=== PATIENT | female | born 1985 | race Caucasian/White ===

== ENCOUNTER 2017-07-08 14:18 | Emergency (ER) | payer OTHER ==
[2017-07-08 14:27] VITALS: BP 117/70; PULSE 93; TEMP 99.6; BMI 29.5
--- NOTE | 2017-07-08 14:50 | PDOC ---
History of Present Illness - General Chief Complaint: Cold Symptoms Stated Complaint: COUGH Time Seen by Provider: 07/08/17 14:36 History Source: Patient - History of Present Illness Timing/Duration: reports: other Associated Symptoms: reports: chest pain/soreness, cough. denies: fever/chills , shortness of breath, wheezing Past History - Past Medical History Allergies/Adverse Reactions: Allergies Allergy/AdvReac Type Severity Reaction Status Date / Time No Known Drug Allergies Allergy Verified 07/08/17 14:27 Home Medications: Ambulatory Orders Azithromycin 250 mg PO DAILY #4 tablet 07/08/17 Benzonatate [Tessalon Pearls -] 100 mg PO TID #21 capsule 07/08/17 Anemia: No Asthma: No Cancer: No Cardiac Disorders: No CVA: No COPD: No CHF: No Dementia: No Diabetes: No GI Disorders: No Disorders: Yes (KIDNEY STONES) HTN: No Hypercholesterolemia: No Liver Disease: No Suicide Attempt (Hx): No Seizures: No Thyroid Disease: No - Surgical History Abdominal Surgery: No Appendectomy: No Cardiac Surgery: No Cholecystectomy: No Lung Surgery: No Neurologic Surgery: No Orthopedic Surgery: No - Immunization History Immunization Up to Date: Yes - Psycho/Social/Smoking Cessation Hx Anxiety: No Suicidal Ideation: No Smoking History: Never smoked Have you smoked in the past 12 months: No Information on smoking cessation initiated: No Hx Alcohol Use: No Drug/Substance Use Hx: No Substance Use Type: None Hx Substance Use Treatment: No Review of Systems - Review of Systems Constitutional: No: Chills, Fever Respiratory: Yes: Cough. No: Shortness of Breath, Wheezing, Hemoptysis *Physical Exam - Vital Signs Last Vital Signs Temp Pulse Resp BP Pulse Ox 99.6 F 93 H 18 117/70 98 07/08/17 14:24 07/08/17 14:24 07/08/17 14:24 07/08/17 14:24 07/08/17 14:24 - Physical Exam General Appearance: Yes: Appropriately Dressed. No: Apparent Distress HEENT: positive: Normal ENT Inspection, Muffled/Hoarse voice (voice hoarse). negative: Scleral Icterus (R), Scleral Icterus (L) Neck: positive: Supple. negative: Lymphadenopathy (R), Lymphadenopathy (L) Respiratory/Chest: positive: Lungs Clear, Normal Breath Sounds. negative: Respiratory Distress Cardiovascular: positive: Regular Rate, S1, S2 Extremity: positive: Normal Inspection Integumentary: positive: Dry, Warm Neurologic: positive: Fully Oriented, Alert, Normal Mood/Affect ED Treatment Course - RADIOLOGY Radiology Studies Ordered: Category Date Time Status CHEST PA & LAT [RAD] Stat Radiology 07/08/17 14:47 Ordered Medical Decision Making - Medical Decision Making 07/08/17 14:48 32 yo F, non-smoker, h/o urosepsis, PNA, w/ dry cough w/ pleuritic chest pain x 10 days. No sob, f/c. Taking zzzquil w/ no relief. Daughter at home with similar symptoms and is also a pt today See exam URI M/l viral Stable w/ unremarkable exam -CXR given h/o PNA -anticipate discharge w/ supportive tx 07/08/17 15:37 07/08/17 16:27 RUL PNA on CXR. As pt stable w/ no resp distress and well shirley w/ no major comorbidities or recent abx use, will treat for CAP as out-pt. 1st dose keflex given in ED. Will dc w/ rx and strict return precautions 07/08/17 16:29 07/08/17 17:48 Upon discharge, pt c/o ?hematuria while in ED. No flank pain, n/v/f/c. No h/o renal stone. Not on menses. UA w/ 3+ bld and LE. Pt to go home with Keflex for PNA which should also cover urine. UCX on record here have all been negative for any growth. Ucx sent today. Reasons to return d/w pt 07/08/17 17:58 *DC/Admit/Observation/Transfer Diagnosis at time of Disposition: Pneumonia Qualifiers: Pneumonia type: due to unspecified organism Laterality: right Lung location: upper lobe of lung Qualified Code(s): J18.1 - Lobar pneumonia, unspecified organism - Discharge Dispostion Disposition: HOME Condition at time of disposition: Good - Prescriptions Prescriptions: Azithromycin 250 mg PO DAILY #4 tablet Benzonatate [Tessalon Pearls -] 100 mg PO TID #21 capsule - Patient Instructions Printed Discharge Instructions: Pneumonia-Adult Additional Instructions: Usted tiene jose neumona (infeccin pulmonar) en el cruzito de portillo pulmn superior derecho. Por favor, tome los antibiticos segn las indicaciones. Si los s ntomas empeoran manuelito las prximas 24-48 horas, por favor regrese a la DE inmediatamente. De lo contrario, siga con portillo PMD a principios de la prxima semana para un seguimiento miguel La orina debe tener maria dolores y glbulos blancos que podran indicar infeccin. Sin embargo el keflex que usted xochilt en el pas debe cubrir UTI Print Language: CAPE VERDEAN
[2017-07-08] MEDS ORDERED: AZITHROMYCIN 250 MG TABLET (FP) PO ONE (16:20)
[2017-07-08] MEDS ORDERED: AZITHROMYCIN 250 MG TABLET (FP) ONE (16:24)
[2017-07-08 17:20] LABS: URINE APPEARANCE CLEAR; URINE BILIRUBIN NEGATIVE (NEGATIVE); URINE BLOOD 3+ (NEGATIVE); URINE COLOR LT. YELLOW; URINE GLUCOSE (UA) NEGATIVE (NEGATIVE); URINE KETONE NEGATIVE (NEGATIVE); URINE NITRITE NEGATIVE (NEGATIVE); URINE PROTEIN TRACE (NEGATIVE)
[2017-07-08 17:41] LABS: URINE LEUK ESTERASE 1+ (NEGATIVE)
[2017-07-08 18:23] LABS: URINE BACTERIA FEW /hpf (NONE SEEN); URINE MUCUS MANY; URINE RBC 510 /hpf (0-3); URINE WBC 13 /hpf (3-5)
== END 2017-07-08 18:04 | disposition home or self-care (01) ==
LOC: JERFT 14:18
DX: J18.1 Lobar pneumonia, unspecified organism (principal); Z87.442 Personal history of urinary calculi
CPT/HCPCS: 71020-TC; 81003; 81015; 84703; 87086; 99281-25

== ENCOUNTER 2018-03-16 15:16 | Emergency (ER) | payer OTHER ==
--- NOTE | 2018-03-16 15:28 | PDOC ---
Rapid Medical Evaluation Medical Evaluation: Allergies Allergy/AdvReac Type Severity Reaction Status Date / Time No Known Drug Allergies Allergy Verified 07/08/17 14:27 03/16/18 15:25 I have performed a brief in-person evaluation of this patient. The patient presents with a chief complaint of: LMP 2, , vaginal bleeding since this morning, denies lightheadedness palpitations Pertinent physical exam findings: well appearing I have ordered the following: labs, tvus The patient will proceed to the ED for further evaluation. Discharge Disposition - Diagnosis Vaginal bleeding during - Referrals - Patient Instructions - Post Discharge Activity
[2018-03-16 15:37] VITALS: BP 110/70; PULSE 65; TEMP 99.1; BMI 26.6
[2018-03-16 16:14] LABS: BASO % 0.4 % (0-2.0); EOS % 2.5 % (0-4.5); HEMATOCRIT 38.4 % (32.4-45.2); HEMOGLOBIN 13.5 GM/dL (10.7-15.3); MCH 34.2 pg (25.7-33.7); MCHC 35.2 g/dl (32.0-36.0); MEAN CELL VOLUME 97.2 fl (80-96); MEAN PLT VOLUME 8.4 fl (7.5-11.1); MONO % 5.9 % (3.8-10.2); NEUT % 62.2 % (42.8-82.8); PLATELET COUNT 242 K/MM3 (134-434); RBC 3.95 M/mm3 (3.60-5.2); RDW 11.9 % (11.6-15.6); WHITE BLOOD COUNT 7.8 K/mm3 (4.0-10.0)
--- NOTE | 2018-03-16 16:22 | PDOC ---
Attending Attestation - Resident Resident Name: Dao Penny - ED Attending Attestation I have performed the following: I have examined & evaluated the patient, The case was reviewed & discussed with the resident, I agree w/resident's findings & plan, Exceptions are as noted - Medical Decision Making 03/16/18 16:21 I, Dr. Denice Tena, DO, attest that this document has been prepared under my direction and personally reviewed by me in its entirety. I further attest, that it accurately reflects all work, treatment, procedures and medical decision -making performed by me. 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 stable for d/c to home follow up with repeat beta in 2 days here in the ED and follow up with [facility] for repeat u/s in 1 week <Denice Tena - Last Filed: 03/16/18 18:48> - HPI HPI: 03/16/18 19:29 The patient is a 33 year old female with , with significant past medical history of Kidney stones, presents to the emergency department with vaginal bleeding since this morning. The patient reports testing positive for by a urine test. The patient reports she noticed hematuria while urinating with no pelvic cramp. 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 She was previously not seen for her . The patient denies chest pain, shortness of breath, headache and dizziness. Denies fever, chills, nausea, vomit, diarrhea and constipation. Denies dysuria, frequency, urgency. Last menses: Patient is unsure but states its either Jan 18 or . Allergies: NKDA Social History: None reported - Physicial Exam PE: 03/16/18 19:43 GENERAL: Awake, alert, and fully oriented, in no acute distress HEAD: No signs of trauma EYES: PERRLA, EOMI, sclera anicteric, conjunctiva clear ENT: Auricles normal inspection, hearing grossly normal, nares patent, oropharynx clear without exudates. Moist mucosa NECK: Normal ROM, supple, no lymphadenopathy, JVD, or masses LUNGS: Breath sounds equal, clear to auscultation bilaterally. No wheezes, and no crackles HEART: Regular rate and rhythm, normal S1 and S2, no murmurs, rubs or gallops ABDOMEN: Soft, nontender, normoactive bowel sounds. No guarding, no rebound. No masses EXTREMITIES: Normal range of motion, no edema. No clubbing or cyanosis. No cords, erythema, or tenderness NEUROLOGICAL: Cranial nerves II through XII grossly intact. Normal speech, normal gait SKIN: Warm, Dry, normal turgor, no rashes or lesions noted. - Medical Decision Making 03/16/18 19:43 Documentation prepared by Modesta Jimenez, acting as medical research associate for Denice Tena DO. <Modesta Jimenez - Last Filed: 03/16/18 19:43>
[2018-03-16 16:49] LABS: ALBUMIN 4.4 g/dl (3.4-5.0); ANION GAP 5 (8-16); BILIRUBIN,TOTAL 0.4 mg/dL (0.2-1.0); BLOOD UREA NITROGEN 12 mg/dL (7-18); CALCIUM 9.5 mg/dL (8.5-10.1); CHLORIDE 106 mmol/L (98-107); CO2 28 mmol/L (21-32); CREATININE 0.5 mg/dL (0.55-1.02); GLUCOSE,RANDOM 88 mg/dL (74-106); POTASSIUM 3.9 mmol/L (3.5-5.1); SGOT/AST 13 U/L (15-37); SGPT/ALT 22 U/L (12-78); SODIUM 139 mmol/L (136-145); TOT PROT 7.6 g/dl (6.4-8.2)
--- NOTE | 2018-03-16 17:03 | PDOC ---
History of Present Illness - General Chief Complaint: Vaginal Sxs Stated Complaint: VAGINAL BLEEDING (10 WKS ) Time Seen by Provider: 03/16/18 16:19 History Source: Patient Exam Limitations: No Limitations - History of Present Illness Initial Comments: 03/16/18 18:45 33F , LMP 2/ presents to the ED with vaginal bleeding this morning. Tested positive for by urine test. Seen at clinic where she was started on vitamins but no betaHCG or U/S yet. Denies nausea, vomiting, palpitations, headaches or edema. Past History - Past Medical History Allergies/Adverse Reactions: Allergies Allergy/AdvReac Type Severity Reaction Status Date / Time No Known Drug Allergies Allergy Verified 03/16/18 15:32 Home Medications: Ambulatory Orders Azithromycin 250 mg PO DAILY #4 tablet 07/08/17 Benzonatate [Tessalon Pearls -] 100 mg PO TID #21 capsule 07/08/17 Anemia: No Asthma: No Cancer: No Cardiac Disorders: No CVA: No COPD: No CHF: No DVT: No Dementia: No Diabetes: No GI Disorders: No Disorders: Yes (KIDNEY STONES) HTN: No Hypercholesterolemia: No Liver Disease: No Seizures: No Thyroid Disease: No - Surgical History Abdominal Surgery: No Appendectomy: No Cardiac Surgery: No Cholecystectomy: No Lung Surgery: No Neurologic Surgery: No Orthopedic Surgery: No - Immunization History Immunization Up to Date: Yes - Suicide/Smoking/Psychosocial Hx Smoking History: Never smoked Have you smoked in the past 12 months: No Information on smoking cessation initiated: No Hx Alcohol Use: No Drug/Substance Use Hx: No Substance Use Type: None Hx Substance Use Treatment: No Abd/GI Specific PMHX - Complaint Specific PMHX Colitis: No Diverticulitis: No Gall Bladder Disease: No GERD: No Hepatitis: No Irritable Bowel Synd (IBS): No Pancreatitis: No GI Ulcer Disease: No Review of Systems - Review of Systems Able to Perform ROS?: Yes Is the patient limited Persian proficient: No Constitutional: No: Symptoms Reported HEENTM: No: Symptoms Reported Respiratory: No: Symptoms reported Cardiac (ROS): No: Symptoms Reported ABD/GI: Yes: See HPI Musculoskeletal: No: Symptoms Reported Integumentary: No: Symptoms Reported Neurological: No: Symptoms reported All Other Systems: Reviewed and Negative *Physical Exam - Vital Signs Last Vital Signs Temp Pulse Resp BP Pulse Ox 99.1 F 65 16 110/70 97 03/16/18 15:32 03/16/18 15:32 03/16/18 15:32 03/16/18 15:32 03/16/18 15:32 - Physical Exam General Appearance: Yes: Nourished, Appropriately Dressed. No: Apparent Distress HEENT: positive: EOMI, KADI, Normal ENT Inspection Respiratory/Chest: positive: Lungs Clear, Normal Breath Sounds. negative: Chest Tender, Respiratory Distress Cardiovascular: positive: Regular Rhythm, Regular Rate, S1, S2 Female Pelvic Exam: positive: normal external exam, cervical os closed, normal adnexa. negative: CMT, adnexal tenderness Gastrointestinal/Abdominal: positive: Normal Bowel Sounds, Flat, Soft, Tenderness. negative: Tender ED Treatment Course - LABORATORY CBC & Chemistry Diagram: 03/16/18 15:23 03/16/18 15:55 - ADDITIONAL ORDERS Additional order review: Laboratory Results 03/16/18 15:55 Sodium 139 Potassium 3.9 Chloride 106 Carbon Dioxide 28 Anion Gap 5 L BUN 12 Creatinine 0.5 L Creat Clearance w eGFR > 60 Random Glucose 88 Calcium 9.5 Total Bilirubin 0.4 D AST 13 L ALT 22 Total Protein 7.6 Albumin 4.4 03/16/18 15:23 RBC 3.95 MCV 97.2 H MCHC 35.2 RDW 11.9 MPV 8.4 Neutrophils % 62.2 Lymphocytes % 29.0 Monocytes % 5.9 Eosinophils % 2.5 Basophils % 0.4 Medical Decision Making - Medical Decision Making 03/16/18 19:07 33F , LMP 2/17 presents to the ED with vaginal bleeding this morning. Tested positive for by urine test. Seen at clinic where she was started on vitamins but no betaHCG or U/S yet.. Beta HCG [id number] TVUS: A single intrauterine gestation at approximately 5 weeks 6 days is noted without associated cardiac activity - ? early viable versus embryonic demise. Clinical/ laboratory correlation is suggested. Close follow-up sonography may be performed. Ken type and screen and urine. Patient d/bi with follow up in tow days to repeat beta HCG in this ER and follow in one week to repeat TVUS at clinic. *DC/Admit/Observation/Transfer Diagnosis at time of Disposition: Vaginal bleeding during , , threatened, early - Discharge Dispostion Disposition: HOME Condition at time of disposition: Stable Admit: No - Referrals Referrals: Zamzam Pitt MD [Staff Physician] - - Patient Instructions Printed Discharge Instructions: DI for Threatened Additional Instructions: Come back to the emergency department in two days to check your betaHCG level. Follow up with your clinic at [facility] in one week for repeat ultrasound. Come back sooner tro the ER for any new, worsening or concerning symptom. Print Language: TAMAZIGHT - Post Discharge Activity
[2018-03-16 17:04] LABS: ALK PHOS 70 U/L (45-117)
[2018-03-16 17:15] LABS: INR 1.34 (0.82-1.09); PROTHROMBIN TIME (PATIENT) 15.1 SEC (9.7-13.0)
[2018-03-16 18:36] LABS: URINE APPEARANCE SLCLOUDY; URINE BILIRUBIN NEGATIVE (<2.0 mg/dL); URINE BLOOD NEGATIVE (NEGATIVE); URINE COLOR LTYELLOW; URINE GLUCOSE (UA) NEGATIVE (NEGATIVE); URINE KETONE NEGATIVE (NEGATIVE); URINE LEUK ESTERASE NEGATIVE (NEGATIVE); URINE NITRITE NEGATIVE (NEGATIVE); URINE PROTEIN NEGATIVE (NEGATIVE); URINE UROBILINOGEN NEGATIVE mg/dL (0.2-1.0)
== END 2018-03-16 19:12 | disposition home or self-care (01) ==
LOC: JER 15:16
DX: O26.891 Other specified pregnancy related conditions, first trimester (principal); O20.0 Threatened abortion; O20.8 Other hemorrhage in early pregnancy; Z3A.10 10 weeks gestation of pregnancy
CPT/HCPCS: 36415; 76817-TC; 80053; 81003; 84702; 85025; 85610; 86850; 86900; 86901; 87086; 99281-25

== ENCOUNTER 2018-03-18 14:07 | Emergency (ER) | payer OTHER ==
[2018-03-18 14:17] VITALS: BP 116/66; PULSE 68; TEMP 98.7; BMI 26.1
--- NOTE | 2018-03-18 14:17 | PDOC ---
Rapid Medical Evaluation Chief Complaint: Vaginal Bleeding Time Seen by Provider: 03/18/18 14:16 Medical Evaluation: Allergies Allergy/AdvReac Type Severity Reaction Status Date / Time No Known Drug Allergies Allergy Verified 03/18/18 14:14 03/18/18 14:17 I have performed a brief in-person evaluation of this patient. The patient presents with a chief complaint of: repeat beta and tvus Pertinent physical exam findings: na I have ordered the following: beta, tvus The patient will proceed to the ED for further evaluation. Discharge Disposition - Diagnosis Vaginal bleeding during - Referrals Referrals: Zina Tirado MD [Primary Care Provider] - - Patient Instructions - Post Discharge Activity
--- NOTE | 2018-03-18 14:59 | PDOC ---
History of Present Illness - General Chief Complaint: Vaginal Bleeding Stated Complaint: 6 wks preg Vaginal Bleeding Time Seen by Provider: 03/18/18 14:16 History Source: Patient, Spouse Exam Limitations: No Limitations - History of Present Illness Initial Comments: 03/18/18 14:54 Patient came following visit on 425 for repeat beta hCG and ultrasound. Was noted on March 16 to of had some scant amount of vaginal bleeding[place] [address], an intrauterine with no cardiac activity associated. Patient states since that time has felt well although this morning while in the shower noted another vaginal bleeding that appeared to have some clots and tissue. Continues to deny cramping, fevers, nausea vomiting or significant vaginal bleeding since that one episode. Was not a planned . 6 para 3 LMP was 01/08/2018 Timing/Duration: unsure Severity: mild Associated Symptoms: reports: denies symptoms Past History - Travel Traveled outside of the country in the last 30 days: No Close contact w/someone who was outside of country & ill: No - Past Medical History Allergies/Adverse Reactions: Allergies Allergy/AdvReac Type Severity Reaction Status Date / Time No Known Drug Allergies Allergy Verified 03/18/18 14:14 Home Medications: Ambulatory Orders NK [No Known Home Medication] 03/18/18 Anemia: No Asthma: No Cancer: No Cardiac Disorders: No CVA: No COPD: No CHF: No DVT: No Dementia: No Diabetes: No GI Disorders: No Disorders: Yes (KIDNEY STONES) HTN: No Hypercholesterolemia: No Liver Disease: No Seizures: No Thyroid Disease: No - Surgical History Abdominal Surgery: No Appendectomy: No Cardiac Surgery: No Cholecystectomy: No Lung Surgery: No Neurologic Surgery: No Orthopedic Surgery: No - Immunization History Immunization Up to Date: Yes - Suicide/Smoking/Psychosocial Hx Smoking History: Never smoked Have you smoked in the past 12 months: No Information on smoking cessation initiated: No Hx Alcohol Use: No Drug/Substance Use Hx: No Substance Use Type: None Hx Substance Use Treatment: No Review of Systems - Review of Systems Able to Perform ROS?: Yes Is the patient limited Bulgarian proficient: Yes Constitutional: Yes: Symptoms Reported, See HPI, Malaise HEENTM: Yes: See HPI. No: Symptoms Reported Respiratory: No: Symptoms reported ABD/GI: Yes: See HPI, Other. No: Symptoms Reported, Vomiting : No: Symptoms Reported Integumentary: No: Symptoms Reported All Other Systems: Reviewed and Negative *Physical Exam - Vital Signs Last Vital Signs Temp Pulse Resp BP Pulse Ox 98.7 F 68 18 116/66 100 03/18/18 14:14 03/18/18 14:14 03/18/18 14:14 03/18/18 14:14 03/18/18 14:14 - Physical Exam General Appearance: Yes: Nourished, Appropriately Dressed, Apparent Distress HEENT: positive: KADI, Normal ENT Inspection, TMs Normal, Pharynx Normal Neck: positive: Supple. negative: Tender, Lymphadenopathy (R), Lymphadenopathy (L) Respiratory/Chest: positive: Lungs Clear, Normal Breath Sounds Gastrointestinal/Abdominal: positive: Normal Bowel Sounds, Soft. 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 Ultrasound reveals an intrauterine with no heart activity. Discussed case with Dr. Kemp, who was on-call [facility]. He agreed would be appropriate to to be seen on Wednesday or Wednesday if patient chooses to go early for the last follow-up. Patient understands plan and understands will return if fevers, worsening bleeding, cramping or problems occur. . [phone] 03/18/18 17:12 03/18/18 17:29 *DC/Admit/Observation/Transfer Diagnosis at time of Disposition: Vaginal bleeding during , , threatened, early - Discharge Dispostion Disposition: HOME Condition at time of disposition: Stable Admit: No - Referrals Referrals: Zina Tirado MD [Staff Physician] - - Patient Instructions Printed Discharge Instructions: DI for Threatened Additional Instructions: Rest, avoid heavy lifting or strenuous activity Lots of fluids: Soups, water, teas, Gatorade Follow-up with Mrs. Hayes next week as scheduled on Wednesday for further testing Return to emergency department for fevers, worsened abdominal pain or cramping, worsened bleeding - Post Discharge Activity Forms/Work/School Notes: Back to Work
== END 2018-03-18 17:47 | disposition home or self-care (01) ==
LOC: JERFT 14:07
DX: O26.891 Other specified pregnancy related conditions, first trimester (principal); Z3A.00 Weeks of gestation of pregnancy not specified; N93.9 Abnormal uterine and vaginal bleeding, unspecified; O20.0 Threatened abortion
CPT/HCPCS: 36415; 76817-TC; 84702; 99281-25

== ENCOUNTER 2019-03-20 09:14 | Emergency (ER) | payer OTHER ==
[2019-03-20 09:23] VITALS: BMI 27.4
[2019-03-20] MEDS ORDERED: ACETAMINOPHEN 325 MG TABLET (FP) PO ONE (10:31)
[2019-03-20] MEDS ORDERED: SODIUM CHLORIDE 1,000 ML IV STA (10:31)
--- NOTE | 2019-03-20 11:13 | PDOC ---
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 No pelvic cramping or bleeding, chills but no measured fever. Pain is pleuritic but not associated with sob/palpitations/cough. no injury/rash. - Physicial Exam PE: 03/20/19 11:08 Afebrile, heart rate 90, O2 sat 98% on room air, is very rate normal Well-appearing, no acute distress and speaking full sentences No JVD Heart is regular, lungs are clear No rash Gravid uterus, Positive left CVA discomfort to palpation, no abdominal guarding or rebound No edema or calf tenderness - Medical Decision Making 03/20/19 11:08 34-year-old female at 36 weeks gestation presents with gradual onset left flank discomfort with dysuria for 2-3 days. Has history of UTI, could be recurrent UTI with early pyelonephritis, no evidence of sepsis or shock. Given her renal infarct in the past, is to be considered given her status, PE seems less likely that was on the differential. Check labs, urinalysis. If obvious UTI, would explain her symptoms and would treat empirically for UTI/early pyelonephritis in third trimester If urinalysis clear, will likely need imaging to assess for vascular radiology Will involve labor and delivery early 03/20/19 12:16 wbc 13, chem wnl including Cr, UA with elevated wbc and leuks. EKG normal bedside POCUS showed no hydronephrosis, no DVT b/l. discussed with L+D, will cover with abx for UTI/pyelo, urine culture sent. Pt to L+D for further evaluation/management. Heart Score/ECG Review #1 ECG reviewed & interpreted by me at: 12:04 General ECG Interpretation: Sinus Rhythm, Normal Rate (73), Normal Intervals ( qtc 414), No acute ischemic changes
--- NOTE | 2019-03-20 11:18 | PDOC ---
History of Present Illness - General Chief Complaint: Pain, Acute Stated Complaint: 36WKS/LT. SIDE PAIN Time Seen by Provider: 03/20/19 10:22 History Source: Patient Exam Limitations: No Limitations - History of Present Illness Initial Comments: Pt is a 34 yo F, with PMH of b/l nephrolithiasis and renal infarct (2014), who is (3 spontaneous abortions), who is presenting at 36 weeks, with L-sided flank pain, dysuria, and urinary urgency x3 days. Pt states starting Wednesday night, she noticed cramping pain in her L side, associated with increased urgency to urinate and burning. She denies any active vaginal bleeding or discharge, and states she still feels movement as usual. Pt also endorses intermittent subjective fever/chills, and her last dose of tylenol was last night at 10pm. She has been tolerating PO food and fluid intake. Pt denies any headache, vision changes, syncope, chest pain, palpitations, SOB, nausea/ vomiting, hematuria, vaginal bleeding or discharge, diarrhea/constipation, or leg swelling. Social: Pt denies any cigarette, alcohol, or drug use. Pt denies any recent travel or sick contacts. Surgical: no relevant history. Family: no relevant history. 03/20/19 12:40 PCP: Dr. Marcano OB: [facility], next scheduled 03/22/2019 03/20/19 12:46 Past History - Travel Traveled outside of the country in the last 30 days: No Close contact w/someone who was outside of country & ill: No - Past Medical History Allergies/Adverse Reactions: Allergies Allergy/AdvReac Type Severity Reaction Status Date / Time No Known Drug Allergies Allergy Verified 03/20/19 09:20 Home Medications: Ambulatory Orders NK [No Known Home Medication] 03/18/18 Anemia: No Asthma: No Cancer: No Cardiac Disorders: No CVA: No COPD: No CHF: No DVT: No Dementia: No Diabetes: No GI Disorders: No Disorders: Yes (KIDNEY STONES) HTN: No Hypercholesterolemia: No Liver Disease: No Seizures: No Thyroid Disease: No - Surgical History Abdominal Surgery: No Appendectomy: No Cardiac Surgery: No Cholecystectomy: No Lung Surgery: No Neurologic Surgery: No Orthopedic Surgery: No - Immunization History Immunization Up to Date: Yes - Suicide/Smoking/Psychosocial Hx Smoking History: Never smoked Have you smoked in the past 12 months: No Information on smoking cessation initiated: No Hx Alcohol Use: No Drug/Substance Use Hx: No Substance Use Type: None Hx Substance Use Treatment: No Review of Systems - Review of Systems Able to Perform ROS?: Yes Is the patient limited [place] proficient: No Constitutional: Yes: Fever, Weight Stable. No: Chills, Diaphoresis, Loss of Appetite, Malaise, Weakness HEENTM: No: Blurred Vision, Double Vision, Nose Congestion, Throat Pain, Throat Swelling, Difficulty Swallowing Respiratory: No: Cough, Orthopnea, Shortness of Breath Cardiac (ROS): No: Chest Pain, Edema, Irregular Heart Rate, Lightheadedness, Palpitations, Syncope, Chest Tightness ABD/GI: Yes: Abdominal cramping. No: Blood Streaked Bowels, Constipated, Diarrhea, Nausea, Poor Appetite, Poor Fluid Intake, Vomiting, Indigestion : Yes: Burning, Dysuria, Flank Pain, Pain, Urgency. No: Discharge, Frequency , Hematuria, Incontinence Musculoskeletal: No: Back Pain, Joint Pain, Muscle Pain, Muscle Weakness, Neck Pain Integumentary: No: Rash Neurological: No: Numbness, Weakness, Unsteady Gait, Ataxia, Dizziness Psychiatric: No: Sleep Pattern Change, Change in Appetite Endocrine: No: Increased Urine, Change in Weight Hematologic/Lymphatic: Yes: Blood Clots (renal infarct). No: Anemia, Easy Bleeding, Easy Bruising All Other Systems: Reviewed and Negative *Physical Exam - Vital Signs Last Vital Signs Temp Pulse Resp BP Pulse Ox 98.2 F 91 H 17 102/66 98 03/20/19 09:20 03/20/19 09:20 03/20/19 09:20 03/20/19 09:20 03/20/19 09:20 - Physical Exam Comments: BP 102/66, HR 91, pt afebrile. Pt in NAD, normal body habitus. Pt alert and oriented x3. cafeteria associate generally intact, muscular strength and sensation intact. No midline spinal tenderness, step-offs, or crepitus. Head normocephalic, atraumatic. Eyes PERRLA, EOMI. Oropharynx without erythema or exudates, no LAD b/l. No nasal congestion, hearing intact. Clear heart sounds, S1/S2, no JVD, b/l pedal edema, or heart murmur. Clear lung sounds, no respiratory distress, wheezes, crackles, or accessory muscle use. No abdominal or CVA tenderness to palpation, no rebound, no guarding. Gravid abdomen, fundal height appropriate for age. Abdomen softand with normoactive bowel sounds. Skin without jaundice or rash. 03/20/19 12:43 ED Treatment Course - LABORATORY CBC & Chemistry Diagram: 03/20/19 10:55 03/20/19 10:55 Medical Decision Making - Medical Decision Making Pt was seen at bedside, also will be seen by attending Dr. Shah. Pt presenting with L-sided flank pain, dysuria, and urinary urgency x3 days. Pt states starting Wednesday night, she noticed cramping pain in her L side, associated with increased urgency to urinate and burning. She denies any active vaginal bleeding or discharge, and states she still feels movement as usual. Pt also endorses intermittent subjective fever/chills, and her last dose of tylenol was last night at 10pm. She has been tolerating PO food and fluid intake. Pt denies any headache, vision changes, syncope, chest pain, palpitations, SOB, nausea/vomiting, hematuria, vaginal bleeding or discharge, diarrhea/constipation, or leg swelling. Considering UTI vs pyelonephritis vs nephrolithiasis vs infected stone vs renal infarct. Ordered work-up including CBC, CMP, UA, urine culture. We will do bedside US ( Dr. Ruiz/Sylvie) to look for lower extremity DVT and renal/bladder US/ hydro/stones, considering prior history of renal infarct and nephrolithiasis. Provided 650 mg PO tylenol and 1 L IV NS for improvement of hydration and discomfort. Will continue to reassess pt and monitor for symptomatic improvement. Labs sent. Called OB floor to inform them of pt. We will obtain work-up result and send her to OB once work-up is completed. 03/20/19 11:15 ECG: NSR, intervals WNL (HR 73, RI 142, QRS 76, QTc 414). No ST segment changes. No prior ECG for comparison. Bedside US (per Dr. Mercer/Joseph) showed small R kidney stones with no hydronephrosis. No evidence of DVT. CBC: WBC 13.4 CMP WNL UA showed +LE +calcium oxalate, and +bacteria, negative nitrites. Providing 1 g ceftriaxone and 1 L IV NS. Pt being sent to L&D floor for further work-up and monitoring. 03/20/19 12:17 03/20/19 12:45 *DC/Admit/Observation/Transfer Diagnosis at time of Disposition: UTI (urinary tract infection) Qualifiers: Urinary tract infection type: site unspecified Hematuria presence: without hematuria Qualified Code(s): N39.0 - Urinary tract infection, site not specified - Discharge Dispostion Disposition: HOME Condition at time of disposition: Good Decision to Admit order: No - Referrals Referrals: Sally Johnston MD [Primary Care Provider] - - Patient Instructions - Post Discharge Activity
[2019-03-20 11:21] LABS: BASO % 0.3 % (0-2.0); EOS % 0.5 % (0-4.5); HEMATOCRIT 34.8 % (32.4-45.2); HEMOGLOBIN 12.1 GM/dL (10.7-15.3); LYMPH % 13.1 % (8-40); MCH 34.5 pg (25.7-33.7); MCHC 34.8 g/dl (32.0-36.0); MEAN CELL VOLUME 99.2 fl (80-96); MEAN PLT VOLUME 8.8 fl (7.5-11.1); MONO % 7.6 % (3.8-10.2); NEUT % 78.5 % (42.8-82.8); PLATELET COUNT 189 K/MM3 (134-434); RBC 3.51 M/mm3 (3.60-5.2); RDW 12.2 % (11.6-15.6); WHITE BLOOD COUNT 13.4 K/mm3 (4.0-10.0)
[2019-03-20 11:24] LABS: PH,URINE 5.5 (5.0-8.0); URINE APPEARANCE CLEAR; URINE BACTERIA 205.4 /hpf (NEGATIVE); URINE BILIRUBIN NEGATIVE (NEGATIVE); URINE CASTS 21 /lpf (0-8); URINE COLOR YELLOW; URINE GLUCOSE (UA) NEGATIVE (NEGATIVE); URINE KETONE TRACE (NEGATIVE); URINE LEUK ESTERASE 1+ (NEGATIVE); URINE NITRITE NEGATIVE (NEGATIVE); URINE PROTEIN TRACE (NEGATIVE); URINE RBC 3 /hpf (0-4); URINE WBC 10 /hpf (0-5)
[2019-03-20 11:41] LABS: URINE CRYSTALS CALCIUM OXALATE /hpf
[2019-03-20 11:51] LABS: ALBUMIN 2.9 g/dl (3.4-5.0); ALK PHOS 163 U/L (45-117); ANION GAP 9 MMOL/L (8-16); BILIRUBIN,TOTAL 0.3 mg/dL (0.2-1); BLOOD UREA NITROGEN 10 mg/dL (7-18); CALCIUM 8.9 mg/dL (8.5-10.1); CHLORIDE 107 mmol/L (98-107); CO2 21 mmol/L (21-32); CREATININE 0.4 mg/dL (0.55-1.3); GLUCOSE,RANDOM 75 mg/dL (74-106); SGOT/AST 16 U/L (15-37); SGPT/ALT 12 U/L (13-61); SODIUM 138 mmol/L (136-145); TOT PROT 6.5 g/dl (6.4-8.2)
[2019-03-20] MEDS ORDERED: CEFTRIAXONE 1,000 MG in DEXTROSE 5%-WATER - 50 ML IVPB ONE (11:59)
[2019-03-20] MEDS ORDERED: CEFTRIAXONE 1 GM/50 ML BAG ONE (12:11)
[2019-03-20 14:08] VITALS: BP 111/66; PULSE 58; TEMP 97.8
--- NOTE | 2019-03-21 14:29 | EKG ---
Test Reason : Blood Pressure : / mmHG Vent. Rate : 073 BPM Atrial Rate : 073 BPM P-R Int : 142 ms QRS Dur : 076 ms QT Int : 376 ms P-R-T Axes : 043 016 018 degrees QTc Int : 414 ms NORMAL SINUS RHYTHM NORMAL ECG WHEN COMPARED WITH ECG OF 07-DEC-2014 08:54, NO SIGNIFICANT CHANGE WAS FOUND Confirmed by MD COTTON MOYSES ([id number]) on 03/21/2019 2:29:03 PM Referred By: Confirmed By:TOM COTTON MD
--- NOTE | 2019-03-23 15:53 | PDOC ---
Patient Follow-up (Call Back) - Post ED Follow - Up Chief Complaint: Pain, Acute Condition at time of discharge: Stable Disposition at time of original discharge: HOME Reason for Call Back: Abnwl. Microbiology (not sure if patient is on antibiotics. 36 weeks . spoke with pt, feels well, saw ob yesterday. discussed, will put on amoxicillin since sensitive to pcn. she will follow up with ob. unable to transmit, called amoxicillin 500 mg tid x 1 week to [facility])
== END 2019-03-20 15:30 | disposition home or self-care (01) ==
LOC: JER 09:14
PROC: 3E0337Z Introduction of Electrolytic and Water Balance Substance into Peripheral Vein, Percutaneous Approach (ICD-10-PCS; principal; 2019-03-20)
PROC: 3E03329 Introduction of Other Anti-infective into Peripheral Vein, Percutaneous Approach (ICD-10-PCS; 2019-03-20)
PROC: BY4FZZZ Ultrasonography of Third Trimester, Single Fetus (ICD-10-PCS; 2019-03-20)
PROC: B246ZZZ Ultrasonography of Right and Left Heart (ICD-10-PCS; 2019-03-20)
PROC: B54DZZZ Ultrasonography of Bilateral Lower Extremity Veins (ICD-10-PCS; 2019-03-20)
DX: O26.893 Other specified pregnancy related conditions, third trimester (principal); O23.43 Unspecified infection of urinary tract in pregnancy, third trimester; Z3A.36 36 weeks gestation of pregnancy; Z87.442 Personal history of urinary calculi; Z87.448 Personal history of other diseases of urinary system
CPT/HCPCS: 36415; 76705-TC; 76801-TC; 80053; 81003; 85025; 87086; 87186; 93005; 93010; 96361; 96365; 99281-25; J7030

== ENCOUNTER 2021-09-08 04:40 | Day surgery (SDC) | payer OTHER ==
[2021-06-27 13:17] VITALS: BMI 26.6
[2021-09-08] MEDS ORDERED: MIDAZOLAM HCL 2 MG/2 ML SINGLE DOSE VIAL ONE (17:08)
[2021-09-08 19:55] VITALS: BP 110/68; PULSE 58; TEMP 97.8
== END 2021-09-08 19:43 | disposition home or self-care (01) ==
LOC: JASU-SURG 04:40
PROVIDERS: ATTEND Urology
PROC: 0TF4XZZ Fragmentation in Left Kidney Pelvis, External Approach (ICD-10-PCS; principal; 2021-09-08 15:00)
DX: N20.0 Calculus of kidney (principal)
CPT/HCPCS: 81025

== ENCOUNTER 2022-08-24 04:19 | Day surgery (SDC) | payer BC ==
[2022-08-21 09:30] VITALS: BMI 24.9
[2022-08-24 09:48] VITALS: RESP 20
[2022-08-24] MEDS ORDERED: KETOROLAC TROMETHAMINE 30 MG/1 ML VIAL ONE (11:19)
[2022-08-24] MEDS ORDERED: ONDANSETRON 4 MG/2 ML VIAL ONE (11:19)
[2022-08-24 11:54] VITALS: TEMP 98
[2022-08-24 14:22] VITALS: BP 106/72; PULSE 52
[2022-08-24] MEDS ORDERED: ACETAMINOPHEN 325 MG TABLET (FP) PO PRN (15:33)
[2022-08-24] MEDS ORDERED: ONDANSETRON 4 MG/2 ML VIAL IVPUSH PRN (15:33)
[2022-08-24] MEDS ORDERED: LACTATED RINGERS SOLUTION 1,000 ML IV SCH (15:45)
== END 2022-08-24 14:56 | disposition home or self-care (01) ==
LOC: JASU-SURG 04:19
PROVIDERS: ATTEND Urology
PROC: 0TF3XZZ Fragmentation in Right Kidney Pelvis, External Approach (ICD-10-PCS; principal; 2022-08-24 11:30)
DX: N20.0 Calculus of kidney (principal)
CPT/HCPCS: 81025

== ENCOUNTER 2023-03-30 04:28 | Day surgery (SDC) | payer BC ==
[2023-03-26 15:03] VITALS: BMI 25.4
[2023-03-30 09:10] VITALS: TEMP 98.9
[2023-03-30 11:18] VITALS: BP 105/60; PULSE 52; RESP 14
== END 2023-03-30 11:00 | disposition home or self-care (01) ==
LOC: JASU-ENDO 04:28
PROVIDERS: ATTEND Student in an Organized Health Care Education/Training Program
PROC: 0DBL8ZX Excision of Transverse Colon, Via Natural or Artificial Opening Endoscopic, Diagnostic (ICD-10-PCS; 2023-03-30)
PROC: 0DBH8ZX Excision of Cecum, Via Natural or Artificial Opening Endoscopic, Diagnostic (ICD-10-PCS; 2023-03-30)
PROC: 0DBM8ZX Excision of Descending Colon, Via Natural or Artificial Opening Endoscopic, Diagnostic (ICD-10-PCS; 2023-03-30)
PROC: 0DBL8ZX Excision of Transverse Colon, Via Natural or Artificial Opening Endoscopic, Diagnostic (ICD-10-PCS; principal; 2023-03-30 09:00)
DX: D12.0 Benign neoplasm of cecum (principal); D12.3 Benign neoplasm of transverse colon; D12.4 Benign neoplasm of descending colon; K64.8 Other hemorrhoids; K62.89 Other specified diseases of anus and rectum
CPT/HCPCS: 81025; 88305-TC